=== PATIENT | female | born 1970 | race American Indian/Alaskan Native ===

== ENCOUNTER 2017-07-05 16:02 | Emergency (ER) | payer MEDICAID, OTHER, SELFPAY ==
[2017-07-05 16:02] VITALS: BMI 18.6
[2017-07-05 16:07] VITALS: RESP 18
--- NOTE | 2017-07-05 16:31 | C.PDOC ---
History Of Present Illness 47F c/o sudden onset headache 2 weeks ago while in the shower. she said she was brushing her teeth in the shower and suddenly gagged on her toothbrush and then felt a stabbing pain in the back of her head after. this pain has been present ever since but waxes and wanes in severity without exac or reliev fx. occasional nausea no fever, vomiting, or photophobia. denies sig pmh. smokes. drinks occasionally. denies illicit drugs. Time Seen by Provider: 07/05/17 16:27 Chief Complaint (Nursing): Headache Past Medical History Vital Signs: Last Vital Signs Temp 97.7 F 07/05/17 19:37 Pulse 60 07/05/17 19:40 Resp 18 07/05/17 19:40 BP 146/87 07/05/17 19:37 Pulse Ox 98 07/05/17 19:40 - [facility] Procedures OTHER SKIN & SUBQ I D (07/11/14) Family History: States: Other Other Family History: grandmother had something related to her brain but she is unsure what. - Social History Hx Tobacco Use: Yes (3/4 of a pack daily) Hx Alcohol Use: Yes Hx Substance Use: No - Immunization History Hx Tetanus Toxoid Vaccination: No Hx Influenza Vaccination: No Hx Pneumococcal Vaccination: No Review Of Systems Constitutional: Negative for: Fever, Chills Eyes: Negative for: Vision Change Cardiovascular: Negative for: Chest Pain Respiratory: Negative for: Shortness of Breath Gastrointestinal: Positive for: Nausea. Negative for: Vomiting, Abdominal Pain Musculoskeletal: Negative for: Neck Pain Neurological: Positive for: Headache. Negative for: Weakness, Numbness, Confusion, Altered Mental Status Physical Exam - Physical Exam Appears: Well, Non-toxic, No Acute Distress Skin: Warm, Dry Head: Atraumatic Eye(s): bilateral: PERRL, EOMI Nose: No Epistaxis Oral Mucosa: Moist Neck: Normal ROM, Supple Cardiovascular: Rhythm Regular Respiratory: No Decreased Breath Sounds, No Accessory Muscle Use Neurological/Psych: Oriented x3, Normal Cranial Nerves, No Cerebellar Signs, Normal Motor, Normal Sensation, Other (no focal deficits) Gait: Steady ED Course And Treatment - Laboratory Results Result Diagrams: 07/05/17 17:16 07/05/17 17:16 O2 Sat by Pulse Oximetry: 99 Lumbar Puncture - Time Out Time Out: Site verified, Patient ID confirmed, Sterile procedures obs. - Consent obtained Consent obtained: Written - Performed by Performed by: Attending Physician - Indications Indication(s): Suspect subarc.hem/neg CT - Patient Position Patient position: Left lateral decubitus - Local Anesthetic Location: L2/L3 Opening pressure cm CSF: 14 - Fluid Appearance Fluid Appearance: Clear Amount Drained ml: 4 - CSF Studies CSF Studies: Cell count/diff, Glucose, Protein, culture/sensitivity - Complications Complications: None - Patient tolerated procedure Patient tolerated procedure: Well Medical Decision Making Medical Decision Making: I disc risks/benefits of LP and the pt agreed to proceed. 1929 I disc results w the pt who was sleeping upon re-eval. Upon waking she says her headache is improved but still present. I offered further treatment for her headache including admission although I explained I feel comfortable that we have ruled out life-threatening conditions. she did not wish for any further treatment and did not wish to stay for further evaluation. PROCEDURE: CT HEAD WITHOUT CONTRAST. HISTORY: headache x2 weeks COMPARISON: None available. TECHNIQUE: Axial computed tomography images were obtained through the head/brain without intravenous contrast. Radiation dose: Total exam DLP = 787.33 mGy-cm. This CT exam was performed using one or more of the following dose reduction techniques: Automated exposure control, adjustment of the mA and/or kV according to patient size, and/or use of iterative reconstruction technique. FINDINGS: HEMORRHAGE: No intracranial hemorrhage. BRAIN: No mass effect or edema. No atrophy or chronic microvascular ischemic changes.Please note that MRI with diffusion imaging is more sensitive in the detection of acute ischemic event. VENTRICLES: No hydrocephalus. CALVARIUM: Unremarkable. PARANASAL SINUSES: Unremarkable as visualized. No significant inflammatory changes. MASTOID AIR CELLS: Unremarkable as visualized. No inflammatory changes. OTHER FINDINGS: None. IMPRESSION: No acute intracranial pathology identified. Disposition - Disposition Referrals: Shaik Molina MD [Staff Provider] - Disposition: HOME/ ROUTINE Disposition Time: 19:31 Condition: IMPROVED Additional Instructions: Please follow up with your doctor this week. Return to the ER for any worsening symptoms or for any other concerns. Prescriptions: SUMAtriptan [Imitrex] 25 - 100 mg PO ONCE PRN #10 tab PRN Reason: Headache Instructions: Acute Headache (ED) Forms: General Discharge Instructions, [facility] (Bhutanese) - Clinical Impression Clinical Impression: Headache
[2017-07-05] MEDS ORDERED: DiphenhydrAMINE 50 mg/ml Inj IVP STA (16:47)
[2017-07-05] MEDS ORDERED: DiphenhydrAMINE 50 mg/ml Inj ONE (16:56)
[2017-07-05 17:19] LABS: BASO % 0.6 % (0.0-2.0); EOS % 0.8 % (0.0-4.0); HEMATOCRIT 37.3 % (34.0-47.0); LYMPH # 1.4 K/uL (1.0-4.3); LYMPH % 39.9 % (20.0-40.0); MEAN CORPUSCULAR HEMOGLOBIN 29.3 pg (27.0-31.0); MEAN CORPUSCULAR HGB CONC 33.9 g/dL (33.0-37.0); MEAN PLATELET VOLUME 8.1 fL (7.2-11.7); MONO # 0.5 K/uL (0.0-0.8); MONO % 13.7 % (0.0-10.0); NRBC % 0.1 % (0.0-2.0); WHITE BLOOD COUNT 3.5 K/uL (4.8-10.8)
[2017-07-05 17:22] LABS: MEAN CELL VOLUME 86.4 fL (81.0-99.0)
[2017-07-05 17:30] LABS: CHLORIDE 98 mmol/L (98-107); POTASSIUM 4.1 mmol/L (3.6-5.2); SODIUM 139 mmol/L (132-148)
[2017-07-05 17:32] LABS: AST/SGOT 35 U/L (14-36); BILIRUBIN,TOTAL 0.7 mg/dL (0.2-1.3); CARBON DIOXIDE 30 mmol/L (22-30); GFR AFRICAN-AMERICAN > 60
[2017-07-05 17:33] LABS: ALB/GLOB RATIO 1.2 (1.0-2.1); ALKALINE PHOSPHATASE 67 U/L (38-126); ALT/SGPT 42 U/L (9-52); BLOOD UREA NITROGEN 9 mg/dL (7-17); CALCIUM 9.7 mg/dl (8.6-10.4); GLUCOSE,RANDOM 135 mg/dL (65-105); TOTAL PROTEIN 8.8 g/dL (6.3-8.3)
--- NOTE | 2017-07-05 17:47 | CT ---
PROCEDURE: CT HEAD WITHOUT CONTRAST. HISTORY: headache x2 weeks COMPARISON: None available. TECHNIQUE: Axial computed tomography images were obtained through the head/brain without intravenous contrast. Radiation dose: Total exam DLP = 787.33 mGy-cm. This CT exam was performed using one or more of the following dose reduction techniques: Automated exposure control, adjustment of the mA and/or kV according to patient size, and/or use of iterative reconstruction technique. FINDINGS: HEMORRHAGE: No intracranial hemorrhage. BRAIN: No mass effect or edema. No atrophy or chronic microvascular ischemic changes.Please note that MRI with diffusion imaging is more sensitive in the detection of acute ischemic event. VENTRICLES: No hydrocephalus. CALVARIUM: Unremarkable. PARANASAL SINUSES: Unremarkable as visualized. No significant inflammatory changes. MASTOID AIR CELLS: Unremarkable as visualized. No inflammatory changes. OTHER FINDINGS: None. IMPRESSION: No acute intracranial pathology identified.
[2017-07-05] MEDS ORDERED: Lidocaine 1% Inj (20ml) ONE (18:03)
[2017-07-05 18:55] LABS: FLUID TYPE SPINAL FLUID
[2017-07-05 19:38] VITALS: BP 146/87; TEMP 97.7
[2017-07-05 19:41] VITALS: PULSE 60
[2017-07-09 18:51] VITALS: O2SAT 99
== END 2017-07-05 19:41 | disposition home or self-care (01) ==
LOC: C.ER 16:02
DX: R51 Headache (principal)
CPT/HCPCS: 70450; 80053; 82945; 84157; 85025; 85610; 85730; 87070; 89050; 96374; 96375; 99285; J1200; J2765